=== PATIENT | female | born 1970 | race Caucasian/White ===

== ENCOUNTER 2016-11-13 16:20 | Observation (INO) | payer MEDICAID, OTHER ==
[2016-11-13 16:20] VITALS: BMI 23.3
[2016-11-13 16:50] VITALS: TEMP 99.1
[2016-11-13] MEDS ORDERED: Sodium Chloride 0.9% 1,000 ML IV STA (17:26)
--- NOTE | 2016-11-13 17:45 | ED PDOC ---
Arrival/HPI - General Chief Complaint: Abdominal Pain Time Seen by Provider: 11/13/16 17:17 - History of Present Illness Narrative History of Present Illness (Text): 11/13/16 17:43 46yr old male presents today sent in by PMD for right sided abdominal pain. no n /v/d/c. no cp or sob. pt c/o sharp right sided abdominal pain and back pain. denies dysuria, urinary frequency or urgency. denies vaginal bleeding or vaginal discharge. pt states pain is severe, unable to sleep at night due to sharp pain. Time/Duration: > month Symptom Course: Worsening Quality: Stabbing Severity Level: Severe Past Medical History - Provider Review Nursing Documentation Reviewed: Yes - Travel History Have you recently traveled outside [place] w/in the past 3 mons?: No - Infectious Disease Hx of Infectious Diseases: None - Reproductive Menopause: No - Cardiac Hx Hypertension: Yes - Pulmonary Hx Respiratory Disorders: No - HEENT Other/Comment: neck mass - Psychiatric Hx Substance Use: No - Surgical History Hx Appendectomy: Yes - Anesthesia Hx Anesthesia: Yes Hx Anesthesia Reactions: No Family/Social History - Physician Review Nursing Documentation Reviewed: Yes Family/Social History: Unknown Family HX Smoking Status: Never Smoked Hx Alcohol Use: No Hx Substance Use: No Allergies/Home Meds Allergies/Adverse Reactions: Allergies Penicillins Allergy (Verified 11/13/16 16:51) RASH Home Medications: Home Meds Medication Instructions Recorded Confirmed Amlodipine Besylate [Norvasc] 5 mg PO DAILY 05/08/14 11/13/16 Review of Systems - Review of Systems Constitutional: absent: Fatigue, Fevers Respiratory: absent: SOB, Cough Cardiovascular: absent: Chest Pain, Palpitations Gastrointestinal: Abdominal Pain. absent: Constipation, Diarrhea, Nausea, Vomiting Genitourinary Female: absent: Dysuria, Frequency, Hematuria, Vaginal Bleeding, Vaginal Discharge Musculoskeletal: Back Pain. absent: Arthralgias, Neck Pain Skin: absent: Rash, Pruritis Neurological: absent: Headache, Dizziness Psychiatric: absent: Anxiety, Depression Physical Exam Vital Signs Reviewed: Yes Vital Signs Temp Pulse Resp BP Pulse Ox 11/13/16 20:24 69 18 158/71 H 98 11/13/16 18:51 75 18 165/79 H 98 11/13/16 17:57 99.1 F 78 18 168/86 H 98 11/13/16 16:46 99.1 F 78 16 170/90 H 98 Temperature: Afebrile Blood Pressure: Hypertensive Pulse: Regular Respiratory Rate: Normal Appearance: Positive for: Well-Appearing, Non-Toxic, Comfortable Pain Distress: None Mental Status: Positive for: Alert and Oriented X 3 - Systems Exam Head: Present: Atraumatic Mouth: Present: Moist Mucous Membranes Neck: Present: Normal Range of Motion Respiratory/Chest: Present: Clear to Auscultation, Good Air Exchange. No: Respiratory Distress, Accessory Muscle Use Cardiovascular: Present: Regular Rate and Rhythm, Normal S1, S2. No: Murmurs Abdomen: Present: Tenderness (+ rlq and suprapubic abdominal tenderness), Normal Bowel Sounds. No: Distention, Peritoneal Signs, Rebound, Guarding Back: Present: Normal Inspection. No: CVA Tenderness, Midline Tenderness, Paraspinal Tenderness Upper Extremity: Present: Normal ROM Lower Extremity: Present: Normal ROM Neurological: Present: GCS=15, Speech Normal Skin: Present: Warm, Dry, Normal Color. No: Rashes Psychiatric: Present: Alert, Oriented x 3 Medical Decision Making ED Course and Treatment: 11/13/16 22:26 Patient is nontoxic well appearing with stable vital signs presenting with abdominal pain x 2 months. sent in by PMD. CBC wnl CMP wnl Urinalysis + blood, + wbcs CAT scan: FINDINGS: Atelectasis. The liver, spleen, pancreas and adrenal glands demonstrate no acute abnormalities. The kidneys are symmetric with no evidence of hydronephrosis. Approximately 3 cm right renal cyst. The aorta is unremarkable. Small fat containing umbilical hernia. Minimal hiatal hernia. The small and large bowel as visualized demonstrate no evidence of obstruction or clear focus of inflammation. The colon contains retained fecal material and bowel gas. Prominence of mesenteric markings in the pelvis. Uterus appears somewhat prominent with prominence of endometrium. Right adnexal cyst, measuring approximately 6 cm and 3 cm. Small amount free fluid in the cul-de-sac. Mild degenerative changes with mild posterior disc bulging in the lumbosacral spine. IMPRESSION: Right adnexal cysts. Uterus appears somewhat prominent with prominence of endometrium. Small amount free fluid in the cul-de-sac. Followup evaluation with dedicated ultrasound recommended. Colon contains retained fecal material and bowel gas. Prominence of mesenteric markings in the pelvis. Approximately 3 cm right renal cyst. Minimal hiatal hernia. Small fat containing umbilical hernia. Mild degenerative changes with mild posterior disc bulging in the lumbosacral spine. 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 states she has to get home. Patient reassessment: pt non toxic well appearing; no distress. i discussed all results with patient and her as well as dr. farias. pt will f/u with dr. farias and the [facility]. . pt states she has a [facility] that she sees that she will f/ u with. advised immediate return if symptoms worsen,persist or if new symptoms develop. Discussed all results with patient in depth Impression: Abdominal pain, adnexal cyst, UTI, renal cyst Motrin every 6 hours as needed for pain tramadol one tablet every 6 hours as needed for moderate to severe pain: May cause drowsiness macrobid; 1 tablet twice daily 10 days. Follow up with primary care physician within the next 2 days Follow up with the [facility] within the next 2 days. Return immediately if symptoms worsen persist or if new symptoms develop: High fevers, increasing pain, vomiting, diarrhea or any other concerning symptoms develop - Lab Interpretations Lab Results: 11/13/16 17:40 11/13/16 17:40 Lab Results 11/13/16 17:40: WBC 6.7, RBC 4.70, Hgb 11.5 L, Hct 36.1, MCV 76.8 L, MCH 24.5 L , MCHC 31.9, RDW 22.7 H, Plt Count 389, Gran % 57.2, Lymph % (Auto) 34.5, [place] % (Auto) 7.0 H, Eos % (Auto) 0.7 L, Baso % (Auto) 0.6, Gran # 3.84, Lymph # 2.3 , [place] # 0.5, Eos # 0.1, Baso # 0.04 11/13/16 17:40: Sodium 137, Potassium 3.6, Chloride 101, Carbon Dioxide 26, Anion Gap 14, BUN 9, Creatinine 0.6, Est GFR ( Amer) > 60, Est GFR (Non- Af Amer) > 60, Random Glucose 86, Calcium 9.1, Total Bilirubin 0.5, AST 26, ALT 39, Alkaline Phosphatase 78, Total Protein 9.1 H, Albumin 4.7, Globulin 4.4, Albumin/Globulin Ratio 1.1, Amylase 86, Lipase 78 11/13/16 15:55: Urine Color Straw, Urine Appearance Sl cloudy, Urine pH 6.5, Ur Specific [place] <= 1.005, Urine Protein Negative, Urine Glucose (UA) Negative, Urine Ketones Negative, Urine Blood Trace-lysed H, Urine Nitrate Negative, Urine Bilirubin Negative, Urine Urobilinogen 0.2, Ur Leukocyte Esterase Large H , Urine RBC 0 - 2, Urine WBC 10 - 15, Ur Epithelial Cells 10 - 12, Urine Bacteria Mod - RAD Interpretation Radiology Orders: 11/13/16 18:04 ABD PELVIS PO & IV CONTRAST [CT] Stat - Medication Orders Current Medication Orders: Ketorolac Tromethamine (Toradol) 30 mg IVP STAT STA Stop: 11/13/16 21:38 Discontinued Medications Sodium Chloride (Sodium Chloride 0.9%) 1,000 mls @ 999 mls/hr IV .Q1H1M STA Stop: 11/13/16 18:26 Last Admin: 11/13/16 17:55 Dose: 999 mls/hr Iohexol (Omnipaque 240 (50 Ml)) Confirm Administered Dose 50 ml .ROUTE .STK-MED ONE Stop: 11/13/16 18:52 Iohexol (Omnipaque 350 100 Ml) Confirm Administered Dose 350 mg .ROUTE .STK-MED ONE Stop: 11/13/16 20:21 ED OBSERVATION Discharge: Yes Date of observation admission: 11/13/16 Time of observation admission: 17:30 - Observation admission statement Patient is being placed in observation because:: abdominal pain - Goals of Observation Goals of observation are:: improvement in symptoms - Progress Note Progress Note: 11/13/16 19:15 pt wants to go home; states she needs to get home to her children. resting comfortably in er. 11/13/16 21:40 pt non toxic well appearing; no distress. pain better after medication. Disposition/Present on Arrival - Present on Arrival Any Indicators Present on Arrival: No History of DVT/PE: No History of Uncontrolled Diabetes: No Urinary Catheter: No History of Decub. Ulcer: No History Surgical Site Infection Following: None - Disposition Have Diagnosis and Disposition been Completed?: Yes Diagnosis: Abdominal pain, Urinary tract infection, Adnexal cyst, Renal cyst Disposition: HOME/ ROUTINE Disposition Time: 22:30 Patient Plan: Discharge Patient Problems: Current Active Problems Problem Status Onset Abdominal pain Acute Adnexal cyst Acute Renal cyst Acute Urinary tract infection Acute Condition: GOOD Discharge Instructions (ExitCare): Kidney Cyst (ED) Additional Instructions: Motrin every 6 hours as needed for pain tramadol one tablet every 6 hours as needed for moderate to severe pain: May cause drowsiness macrobid; 1 tablet twice daily 10 days. Follow up with primary care physician within the next 2 days Follow up with the [facility] within the next 2 days. Return immediately if symptoms worsen persist or if new symptoms develop: High fevers, increasing pain, vomiting, diarrhea or any other concerning symptoms develop Prescriptions: Ibuprofen [Motrin] 600 mg PO Q6H PRN #20 tab PRN Reason: pain/fever reduction Nitrofurantoin Macrocrystals [Macrobid] 100 mg PO BID #20 cap traMADol [Ultram] 50 mg PO Q6H PRN #10 tab PRN Reason: moderate to severe pain Referrals: Roni Farias MD [Primary Care Provider] - Follow up with primary
[2016-11-13 18:03] LABS: ADD MANUAL DIFF? NO
[2016-11-13 18:16] LABS: PH,URINE 6.5 (4.7-8.0); URINE BILIRUBIN NEGATIVE (NEGATIVE); URINE BLOOD TRACE-LYSED (NEGATIVE); URINE GLUCOSE (UA) NEGATIVE (NEGATIVE); URINE KETONE NEGATIVE (NEGATIVE); URINE LEUKOCYTE ESTERASE LARGE Leu/uL (NEGATIVE); URINE PROTEIN NEGATIVE mg/dL (<30 mg/dL); URINE UROBILINOGEN 0.2 E.U./dL (<1 E.U./dL)
[2016-11-13 18:17] LABS: BASO # 0.04 K/mm3 (0.0-2.0); BASO % 0.6 % (0.0-3.0); EOS # 0.1 (0.0-0.7); EOS % 0.7 % (1.5-5.0); GRAN # 3.84 (1.4-6.5); GRAN % 57.2 % (50.0-68.0); HEMATOCRIT 36.1 % (36.0-48.0); LYMPH # 2.3 (1.2-3.4); LYMPH % 34.5 % (22.0-35.0); MEAN CELL VOLUME 76.8 fL (80.0-105.0); MEAN CORPUSCULAR HEMOGLOBIN 24.5 pg (25.0-35.0); MEAN CORPUSCULAR HGB CONC 31.9 g/dl (31.0-37.0); MONO # 0.5 (0.1-0.6); PLATELET COUNT 389 10^3/uL (120.0-450.0); RED CELL DISTRIBUTION WIDTH 22.7 % (11.5-14.5); WHITE BLOOD COUNT 6.7 10^3/ul (4.5-11.0)
[2016-11-13 18:18] LABS: ALB/GLOB RATIO 1.1 (1.1-1.8); ALKALINE PHOSPHATASE 78 U/L (38-133); ALT/SGPT 39 U/L (7-56); AMYLASE 86 U/L (35-125); AST/SGOT 26 U/L (15-39); BILIRUBIN,TOTAL 0.5 mg/dL (0.2-1.3); BLOOD UREA NITROGEN 9 mg/dL (7-21); CALCIUM 9.1 mg/dL (8.4-10.5); CARBON DIOXIDE 26 mmol/L (21-33); CHLORIDE 101 mmol/L (98-107); GFR AFRICAN-AMERICAN > 60; GLUCOSE,RANDOM 86 mg/dL (70-110); LIPASE 78 U/L (23-300); POTASSIUM 3.6 mmol/L (3.6-5.0); SODIUM 137 mmol/L (132-148); TOTAL PROTEIN 9.1 g/dL (5.8-8.3)
[2016-11-13 18:20] LABS: URINE APPEARANCE SL CLOUDY (CLEAR); URINE COLOR STRAW (YELLOW)
[2016-11-13 18:30] LABS: URINE BACTERIA MOD (NEG); URINE RBC 0 - 2 /hpf (0-2)
[2016-11-13] MEDS ORDERED: Iohexol 240 (50 ml) ONE (18:51)
[2016-11-13] MEDS ORDERED: Iohexol 350 MG/100 ML VIAL ONE (20:20)
--- NOTE | 2016-11-13 21:27 | CT ---
EXAM: CT Abdomen and Pelvis With Intravenous Contrast CLINICAL HISTORY: 46 years old, female; Pain; Abdominal pain; Prior surgery; Surgery type: Appendectomy TECHNIQUE: Axial computed tomography images of the abdomen and pelvis with intravenous contrast. This CT exam was performed using one or more of the following dose reduction techniques: automated exposure control, adjustment of the mA and/or kV according to patient size, and/or use of iterative reconstruction technique. Coronal and sagittal reformatted images were created and reviewed. CONTRAST: 96 mL of OMNI 350 administered intravenously. COMPARISON: No relevant prior studies available. FINDINGS: Atelectasis. The liver, spleen, pancreas and adrenal glands demonstrate no acute abnormalities. The kidneys are symmetric with no evidence of hydronephrosis. Approximately 3 cm right renal cyst. The aorta is unremarkable. Small fat containing umbilical hernia. Minimal hiatal hernia. The small and large bowel as visualized demonstrate no evidence of obstruction or clear focus of inflammation. The colon contains retained fecal material and bowel gas. Prominence of mesenteric markings in the pelvis. Uterus appears somewhat prominent with prominence of endometrium. Right adnexal cyst, measuring approximately 6 cm and 3 cm. Small amount free fluid in the cul-de-sac. Mild degenerative changes with mild posterior disc bulging in the lumbosacral spine. IMPRESSION: Right adnexal cysts. Uterus appears somewhat prominent with prominence of endometrium. Small amount free fluid in the cul-de-sac. Followup evaluation with dedicated ultrasound recommended. Colon contains retained fecal material and bowel gas. Prominence of mesenteric markings in the pelvis. Approximately 3 cm right renal cyst. Minimal hiatal hernia. Small fat containing umbilical hernia. Mild degenerative changes with mild posterior disc bulging in the lumbosacral spine.
[2016-11-13 23:11] VITALS: BP 152/70; PULSE 65; RESP 16; O2SAT 99
== END 2016-11-13 22:30 | disposition home or self-care (01) ==
LOC: ED 16:20 → EROBSV 17:26
PROVIDERS: ADMIT Emergency Medicine; ATTEND Emergency Medicine
DX: N39.0 Urinary tract infection, site not specified (principal); N28.1 Cyst of kidney, acquired; R10.9 Unspecified abdominal pain
CPT/HCPCS: 74177; 80053; 81001; 82150; 83690; 85025; 87086; 96361; 96374; 99284; G0378; J1885; J7040; Q9966; Q9967